=== PATIENT | female | born 1990 | race African-American/Black ===

== ENCOUNTER 2021-10-11 14:29 | Outpatient (CLI) | payer OTHER ==
[~2021-10-11 14:29] MED LIST: ALBUTEROL 90 MCG/ACT 8GM HFA INHALER INH PRN; ALBUTEROL SULFATE 2.5 MG/0.5 ML INH NEB SOLN INH PRN; EPINEPHrine INJ 1 MG/ML 1ML AMP IM PRN; NS 1,000 ML IV SCH; diphenhydrAMINE 50MG/ML VIAL (J1200) IV PRN; methylPREDNISolone 125MG 2ML VIAL IV PRN
[2021-10-11] MEDS ORDERED: diphenhydrAMINE 25MG CAP PO ONE (15:00)
[2021-10-11] MEDS ORDERED: ACETAMINOPHEN TAB 650MG DOSE (2X325MG) PO ONE (15:00)
[2021-10-11] MEDS ORDERED: CASIRIVIMAB (REGN10933) 600 MG, IMDEVIMAB (REGN10987) 600 MG in NS 250 ML IV ONE (15:00)
[2021-10-11 15:40] VITALS: BP 132/64
[2021-10-11 16:10] VITALS: BP 120/56
[2021-10-11 16:40] VITALS: BP 124/60
[2021-10-11 17:40] VITALS: BP 129/70
== END 2021-10-11 17:40 | disposition home or self-care (01) ==
LOC: M OPCLI4PR 14:29
PROVIDERS: ATTEND Advanced Practice Midwife
DX: U07.1 COVID-19 (principal)